=== PATIENT | female | born 1945 | race African-American/Black ===

== ENCOUNTER 2018-01-20 13:04 | Day surgery (SDC) | payer MEDICARE, OTHER ==
[2018-01-20 14:00] LABS: ADD MAN DIFF? NO
[2018-01-20 14:03] LABS: BASOPHIL # 0.1 10^3/ul (0.0-0.1); BASOPHILS % 0.9 % (0.0-2.0); EOSINOPHILS # 0.1 10^3/ul (0.0-0.5); EOSINOPHILS % 1.6 % (0.0-7.0); HEMATOCRIT 35.8 % (37.0-47.0); HEMOGLOBIN 11.6 g/dl (12.0-16.0); LYMPHOCYTES # 1.9 10^3/ul (0.8-2.9); LYMPHOCYTES % 34.2 % (15.0-51.0); MEAN CORPUSCULAR HEMOGLOBIN 29.2 pg (29.0-33.0); MEAN CORPUSCULAR HGB CONC 32.4 g/dl (32.0-37.0); MEAN CORPUSCULAR VOLUME 90.2 fl (82.0-101.0); MEAN PLATELET VOLUME 10.5 fl (7.4-10.4); MONOCYTE # 0.5 10^3/ul (0.3-0.9); MONOCYTES % 9.6 % (0.0-11.0); NEUTROPHILS % 53.7 % (39.0-77.0); PLATELET COUNT 285 10^3/UL (140-415); RED BLOOD COUNT 3.97 10^6/ul (4.20-5.40); RED CELL DISTRIBUTION WIDTH 14.2 % (11.5-14.5)
[2018-01-20 14:03] LABS: WHITE BLOOD COUNT 5.5 10^3/ul (4.8-10.8)
[2018-01-20 14:05] LABS: ADD UMIC YES; UR ASCORBIC ACID NEGATIVE (NEGATIVE); UR BACTERIA FEW /HPF (NONE SEEN); UR BILIRUBIN (Dip) NEGATIVE (NEGATIVE); UR BLOOD (Dip) NEGATIVE (NEGATIVE); UR CLARITY CLEAR (CLEAR); UR COLOR YELLOW (YELLOW); UR GLUCOSE (Dip) NEGATIVE (NEGATIVE); UR KETONES (Dip) NEGATIVE (NEGATIVE); UR LEUKOCYTE ESTERASE (Dip) TRACE Leu/ul (NEGATIVE); UR NITRITE (Dip) NEGATIVE (NEGATIVE); UR RBC 1 /HPF (0-5); UR SPECIFIC GRAVITY (Dip) 1.011 (1.003-1.030); UR SQUAMOUS EPITHELIAL CELL FEW /HPF (FEW); UR TOTAL PROTEIN (Dip) NEGATIVE (NEGATIVE); UR UROBILINOGEN (Dip) NEGATIVE (NEGATIVE); UR WBC 3 /HPF (0-5)
[2018-01-20 14:23] LABS: ANION GAP 18 (8-16); CARBON DIOXIDE 22 mmol/L (21-31); CHLORIDE 113 mmol/L (97-110); GLUCOSE 83 mg/dl (70-220)
[2018-01-20 14:24] LABS: INR 0.94; PROTIME 12.7 Sec (11.9-14.9)
[2018-01-20 14:25] LABS: PARTIAL THROMBOPLASTIN TIME 33.6 Sec (25.0-35.0)
[2018-01-20 14:33] LABS: BLOOD UREA NITROGEN 29 mg/dl (7-20); CALCIUM 9.5 mg/dl (8.4-10.2); CREATININE 1.49 mg/dl (0.44-1.00); POTASSIUM 4.6 mmol/L (3.5-5.1); SODIUM 148 mmol/L (135-144)
[2018-01-20] MEDS ORDERED: CEFAZOLIN 2 GM/50 ML (PMX) 50 ML IVPB (15:00)
[2018-01-20] MEDS ORDERED: LIDOCAINE 1% (MDV) 20 ML INJ (15:51)
[2018-01-20] MEDS ORDERED: PROPOFOL 20 ML (15:51)
[2018-01-20] MEDS ORDERED: MIDAZOLAM 1 MG/ML 2 ML INJ (15:51)
[2018-01-20] MEDS ORDERED: PHENYLephrine (100 MCG/ML) 5ML SYG (16:01)
[2018-01-20] MEDS ORDERED: CEFAZOLIN 1 GM INJ (16:02)
[2018-01-20] MEDS ORDERED: EPHEDrine SULFATE 50 MG/5 ML SYG (16:09)
[2018-01-20] MEDS: BUPIVACAINE 0.5% (SDV) 30 ML INJ (16:18)
[2018-01-20] MEDS: LIDOCAINE 2% (MDV) 20 ML INJ (16:18)
[2018-01-20] MEDS: POLYMYXIN/BACITRACIN 1L IRRIG (16:18)
[2018-01-20] MEDS: HYDROmorphONE (0.2 MG/ML) 10ML SYG IV ×10 (17:17→18:07)
[2018-01-20] MEDS: ONDANSETRON 4 MG INJ IV (17:19)
[2018-01-20] MEDS ORDERED: hydrALAzine 20 MG INJ IV (17:30)
[2018-01-20] MEDS ORDERED: LABETALOL HCL 20MG INJ IV (17:30)
== END 2018-01-20 21:07 | disposition home or self-care (01) ==
LOC: SDS 13:04
DX: D16.31 Benign neoplasm of short bones of right lower limb (principal); I96 Gangrene, not elsewhere classified; I73.9 Peripheral vascular disease, unspecified; E11.9 Type 2 diabetes mellitus without complications; Z89.432 Acquired absence of left foot; Z89.431 Acquired absence of right foot; E78.5 Hyperlipidemia, unspecified; I25.10 Atherosclerotic heart disease of native coronary artery without angina pectoris; F17.200 Nicotine dependence, unspecified, uncomplicated; I77.9 Disorder of arteries and arterioles, unspecified; I25.2 Old myocardial infarction
CPT/HCPCS: 28119; 73630; 80048; 81001; 82962; 85025; 85610; 85730; 88304; 88311

== ENCOUNTER 2019-05-06 08:44 | Inpatient (IN) | payer MEDICARE, OTHER ==
[2019-05-06 09:59] LABS: ADD MAN DIFF? NO
[2019-05-06 10:26] LABS: INR 0.98; PROTIME 13.1 Sec (11.9-14.9)
[2019-05-06 10:27] LABS: PARTIAL THROMBOPLASTIN TIME 33.2 Sec (23.0-35.0)
[2019-05-06 10:29] LABS: ALANINE AMINOTRANSFERASE 16 IU/L (13-69); ALBUMIN/GLOBULIN RATIO 1.14; ALKALINE PHOSPHATASE 154 IU/L (42-121); ANION GAP 5 (5-13); ASPARTATE AMINO TRANSFERASE 23 IU/L (15-46); BILIRUBIN,INDIRECT 0.4 mg/dl (0-1.1); BILIRUBIN,TOTAL 0.4 mg/dl (0.2-1.3); CALCIUM 9.4 mg/dl (8.4-10.2); CARBON DIOXIDE 25 mmol/L (21-31); CHLORIDE 113 mmol/L (97-110); GLUCOSE 113 mg/dl (70-220); TOTAL PROTEIN 7.5 g/dl (6.1-8.1)
[2019-05-06 10:33] LABS: BLOOD UREA NITROGEN 21 mg/dl (7-20); CREATININE 1.39 mg/dl (0.44-1.00); POTASSIUM 4.5 mmol/L (3.5-5.1); SODIUM 143 mmol/L (135-144)
[2019-05-06 10:48] LABS: WHITE BLOOD COUNT 6.2 10^3/ul (4.8-10.8)
[2019-05-06 10:48] LABS: BASOPHIL # 0.1 10^3/ul (0.0-0.1); BASOPHILS % 0.8 % (0.0-2.0); EOSINOPHILS # 0.1 10^3/ul (0.0-0.5); EOSINOPHILS % 1.5 % (0.0-7.0); HEMATOCRIT 29.5 % (37.0-47.0); HEMOGLOBIN 9.3 g/dl (12.0-16.0); LYMPHOCYTES # 1.5 10^3/ul (0.8-2.9); LYMPHOCYTES % 24.4 % (15.0-51.0); MEAN CORPUSCULAR HEMOGLOBIN 27.2 pg (29.0-33.0); MEAN CORPUSCULAR HGB CONC 31.5 g/dl (32.0-37.0); MEAN CORPUSCULAR VOLUME 86.3 fl (82.0-101.0); MEAN PLATELET VOLUME 10.4 fl (7.4-10.4); MONOCYTE # 0.6 10^3/ul (0.3-0.9); MONOCYTES % 10.1 % (0.0-11.0); NEUTROPHIL # 3.9 10^3/ul (1.6-7.5); NEUTROPHILS % 62.7 % (39.0-77.0); PLATELET COUNT 254 10^3/UL (140-415); RED BLOOD COUNT 3.42 10^6/ul (4.20-5.40); RED CELL DISTRIBUTION WIDTH 15.5 % (11.5-14.5)
[2019-05-06 10:49] LABS: HOLD TRANSMISSIONS 1
[2019-05-06] MEDS ORDERED: SOD CHLORIDE 0.9% 1,000 ML IV (11:00)
[2019-05-06] MEDS ORDERED: PROPOFOL 20 ML (11:10)
[2019-05-06] MEDS ORDERED: ROCURONIUM 50 MG INJ ×2 (11:10→11:11)
[2019-05-06] MEDS ORDERED: LIDOCAINE 2% (SDV) 5 ML INJ (11:10)
[2019-05-06] MEDS: GELATIN SIZE 100 SPONGE (12:13)
[2019-05-06] MEDS: HEPARIN 1000 UNITS/ML 10 ML INJ (12:14)
[2019-05-06] MEDS: THROMBIN 5000 UNIT VIAL (12:14)
[2019-05-06] MEDS ORDERED: ONDANSETRON 4 MG INJ (12:18)
[2019-05-06] MEDS ORDERED: DEXAMETHASONE 4 MG/ML 5 ML INJ (12:18)
[2019-05-06] MEDS ORDERED: HEPARIN 1000 UNITS/ML 10 ML INJ (12:31)
[2019-05-06] MEDS ORDERED: PROTAMINE 250 MG INJ (13:11)
[2019-05-06] MEDS ORDERED: SUGAMMADEX SODIUM 200 MG/2 ML VIAL IV (13:19)
[2019-05-06] MEDS ORDERED: ALBUTEROL 0.083% (NEB) 2.5 MG/3 ML AMP HHN (14:00)
[2019-05-06] MEDS ORDERED: ONDANSETRON 4 MG INJ IV ×2 (14:00→15:30)
[2019-05-06] MEDS ORDERED: MIDAZOLAM 1 MG/ML 2 ML INJ IV (14:00)
[2019-05-06] MEDS ORDERED: HYDROmorphONE 0.5 MG/0.5 ML SYG IV ×2 (14:00)
[2019-05-06] MEDS ORDERED: LABETALOL HCL 20MG INJ IV (14:00)
[2019-05-06] MEDS ORDERED: DIPHENHYDRAMINE 50 MG INJ IV (14:00)
[2019-05-06] MEDS ORDERED: niCARdipine 50 MG in SOD CHLORIDE 0.9% 480 ML IV (14:00)
[2019-05-06] MEDS ORDERED: EPHEDrine 25 MG/5 ML SYG IV (14:00)
[2019-05-06] MEDS ORDERED: MEPERIDINE 25 MG INJ IV (14:00)
[2019-05-06] MEDS: hydrALAzine 20 MG INJ IV ×2 (14:05→14:31)
[2019-05-06] MEDS: SOD CHLORIDE 0.9% 1,000 ML IV ×2 (14:30→21:47)
[2019-05-06] MEDS ORDERED: HYDROCODONE/APAP (5/325) TAB PO (15:30)
[2019-05-06] MEDS ORDERED: NACL 0.9% 3 ML SYG IV (15:30)
[2019-05-06] MEDS ORDERED: DEXTROSE 50% 50 ML SYRINGE IV ×2 (15:30)
[2019-05-06] MEDS ORDERED: ACETAMINOPHEN 325 MG TAB PO (15:30)
[2019-05-06] MEDS ORDERED: GLUCOSE GEL 15 GRAM TUBE BUCCAL (15:30)
[2019-05-06] MEDS: HYDROmorphONE 0.5 MG/0.5 ML SYG IV (15:30)
[2019-05-06] MEDS ORDERED: GLUCOSE GEL 15 GRAM TUBE PO ×2 (15:30)
[2019-05-06] MEDS ORDERED: GLUCAGON 1 MG INJ IM (15:30)
[2019-05-06 16:47] LABS: HEMOGLOBIN A1C 5.2 % (0-5.9)
[2019-05-06] MEDS: INSULIN ASPART [NOVOLOG] 3 ML PEN SC (20:29)
[2019-05-06] MEDS: HEPARIN 5,000 UNIT/1 ML VIAL SC (20:35)
[2019-05-06] MEDS: HYDROCODONE/APAP (5/325) TAB PO (20:44)
[2019-05-06] MEDS ORDERED: APIXABAN 5 MG TABLET PO (21:00)
[2019-05-06] MEDS: ALPRAZOLAM 1 MG TAB PO (21:55)
[2019-05-06 22:37] LABS: ADD UMIC NO; UR ASCORBIC ACID NEGATIVE (NEGATIVE); UR BILIRUBIN (Dip) NEGATIVE (NEGATIVE); UR BLOOD (Dip) NEGATIVE (NEGATIVE); UR CLARITY CLEAR (CLEAR); UR COLOR YELLOW (YELLOW); UR GLUCOSE (Dip) NEGATIVE (NEGATIVE); UR KETONES (Dip) TRACE mg/dL (NEGATIVE); UR LEUKOCYTE ESTERASE (Dip) NEGATIVE Leu/ul (NEGATIVE); UR NITRITE (Dip) NEGATIVE (NEGATIVE); UR SPECIFIC GRAVITY (Dip) 1.013 (1.003-1.030); UR TOTAL PROTEIN (Dip) NEGATIVE (NEGATIVE); UR UROBILINOGEN (Dip) NEGATIVE (NEGATIVE)
[2019-05-06 22:48] LABS: CREATININE,URINE RANDOM 67.26 mg/dl (20-320); PROTEIN/CREAT RATIO 0.28 RATIO
[2019-05-07] MEDS: ACCU-CHEK XX (02:00)
[2019-05-07] MEDS: HYDROCODONE/APAP (5/325) TAB PO ×3 (02:59→22:05)
[2019-05-07] MEDS: morphine 2 MG INJ IV (03:51)
[2019-05-07 05:52] LABS: ADD MAN DIFF? NO
[2019-05-07 06:01] LABS: WHITE BLOOD COUNT 10.1 10^3/ul (4.8-10.8)
[2019-05-07 06:01] LABS: BASOPHILS % 0.3 % (0.0-2.0); HEMATOCRIT 24.5 % (37.0-47.0); HEMOGLOBIN 7.6 g/dl (12.0-16.0); LYMPHOCYTES # 1.2 10^3/ul (0.8-2.9); LYMPHOCYTES % 12.2 % (15.0-51.0); MEAN CORPUSCULAR HEMOGLOBIN 26.9 pg (29.0-33.0); MEAN CORPUSCULAR VOLUME 86.6 fl (82.0-101.0); MEAN PLATELET VOLUME 11.5 fl (7.4-10.4); MONOCYTE # 0.7 10^3/ul (0.3-0.9); MONOCYTES % 6.9 % (0.0-11.0); NEUTROPHIL # 8.1 10^3/ul (1.6-7.5); NEUTROPHILS % 80.2 % (39.0-77.0); PLATELET COUNT 252 10^3/UL (140-415); RED BLOOD COUNT 2.83 10^6/ul (4.20-5.40); RED CELL DISTRIBUTION WIDTH 15.7 % (11.5-14.5)
[2019-05-07] MEDS: LEVOTHYROXINE 112 MCG TAB PO (06:03)
[2019-05-07 06:24] LABS: IRON 30 ug/dl (35-150)
[2019-05-07 06:33] LABS: % IRON SATURATION 15 % SAT (22-52); TOTAL IRON BINDING CAPACITY 206 ug/dl (241-421)
[2019-05-07 06:41] LABS: HEMOGLOBIN A1C 5.4 % (0-5.9)
[2019-05-07 06:43] LABS: ALANINE AMINOTRANSFERASE 13 IU/L (13-69); ALBUMIN 3.2 g/dl (3.3-4.9); ALBUMIN/GLOBULIN RATIO 1.03; ALKALINE PHOSPHATASE 105 IU/L (42-121); ANION GAP 6 (5-13); ASPARTATE AMINO TRANSFERASE 20 IU/L (15-46); BILIRUBIN,INDIRECT 0.3 mg/dl (0-1.1); BILIRUBIN,TOTAL 0.3 mg/dl (0.2-1.3); BLOOD UREA NITROGEN 24 mg/dl (7-20); CALCIUM 8.8 mg/dl (8.4-10.2); CARBON DIOXIDE 23 mmol/L (21-31); CHLORIDE 112 mmol/L (97-110); CHOLESTEROL 186 mg/dl (100-200); CREATININE 1.41 mg/dl (0.44-1.00); GLUCOSE 130 mg/dl (70-220); HDL CHOLESTEROL 62 mg/dl (33-92); LDL CHOLESTEROL,CALCULATED 98 mg/dl; MAGNESIUM 1.8 mg/dl (1.7-2.5); PHOSPHORUS 3.7 mg/dl (2.5-4.9); SODIUM 141 mmol/L (135-144); TOTAL PROTEIN 6.3 g/dl (6.1-8.1); TRIGLYCERIDES 128 mg/dl (0-149)
[2019-05-07 06:49] LABS: FREE THYROXINE INDEX (Calc) 2.49 ug/ml (0.65-3.89); T3 UPTAKE 37.7 % (23.5-40.5); T4 (THYROXINE) 6.6 ug/dl (5.5-11.0)
[2019-05-07 07:00] LABS: FERRITIN 40.1 ng/ml (11.1-264.0)
[2019-05-07 07:03] LABS: THYROID STIMULATING HORMONE 0.881 MIU/L (0.465-4.680)
[2019-05-07] MEDS: ASPIRIN (EC) 81 MG TAB PO (08:41)
[2019-05-07] MEDS: EZETIMIBE 10 MG TAB PO (08:41)
[2019-05-07] MEDS: CLOPIDOGREL 75 MG TAB PO (08:44)
[2019-05-07] MEDS: AMLODIPINE 10 MG TAB PO (08:46)
[2019-05-07] MEDS: HEPARIN 5,000 UNIT/1 ML VIAL SC ×2 (08:49→20:57)
[2019-05-07] MEDS: INSULIN ASPART [NOVOLOG] 3 ML PEN SC ×4 (09:03→21:00)
[2019-05-07] MEDS: SOD CHLORIDE 0.9% 1,000 ML IV ×2 (09:08→21:07)
[2019-05-07] MEDS: SOD FERRIC GLUC COMPLX 125 MG in SOD CHLORIDE 0.9% 100 ML IVPB (12:01)
[2019-05-07] MEDS: NEOMYC/POLYMYX/BACIT 30 GM OINT TOP (14:19)
[2019-05-07 14:54] LABS: HEMATOCRIT 25.6 % (37.0-47.0); HEMOGLOBIN 8.1 g/dl (12.0-16.0)
[2019-05-07] MEDS: ALPRAZOLAM 1 MG TAB PO ×2 (15:36→22:05)
[2019-05-07] MEDS ORDERED: ALPRAZOLAM 1 MG TAB PO (18:30)
[2019-05-07] MEDS ORDERED: INSULIN REGULAR, HUMAN 100 UNIT/1 ML 3ML VIAL SC (21:00)
[2019-05-08] MEDS: ACCU-CHEK XX (02:00)
[2019-05-08 05:31] LABS: ADD MAN DIFF? NO
[2019-05-08 05:33] LABS: BASOPHILS % 0.5 % (0.0-2.0); EOSINOPHILS # 0.1 10^3/ul (0.0-0.5); EOSINOPHILS % 0.6 % (0.0-7.0); HEMATOCRIT 23.9 % (37.0-47.0); HEMOGLOBIN 7.5 g/dl (12.0-16.0); LYMPHOCYTES # 2.5 10^3/ul (0.8-2.9); LYMPHOCYTES % 30.9 % (15.0-51.0); MEAN CORPUSCULAR HEMOGLOBIN 26.9 pg (29.0-33.0); MEAN CORPUSCULAR HGB CONC 31.4 g/dl (32.0-37.0); MEAN CORPUSCULAR VOLUME 85.7 fl (82.0-101.0); MONOCYTE # 0.7 10^3/ul (0.3-0.9); MONOCYTES % 8.6 % (0.0-11.0); NEUTROPHIL # 4.7 10^3/ul (1.6-7.5); PLATELET COUNT 238 10^3/UL (140-415); RED BLOOD COUNT 2.79 10^6/ul (4.20-5.40); RED CELL DISTRIBUTION WIDTH 15.9 % (11.5-14.5)
[2019-05-08 06:07] LABS: ALANINE AMINOTRANSFERASE 12 IU/L (13-69); ALKALINE PHOSPHATASE 97 IU/L (42-121); ANION GAP 5 (5-13); ASPARTATE AMINO TRANSFERASE 18 IU/L (15-46); BILIRUBIN,INDIRECT 0.4 mg/dl (0-1.1); BILIRUBIN,TOTAL 0.4 mg/dl (0.2-1.3); BLOOD UREA NITROGEN 29 mg/dl (7-20); CALCIUM 8.4 mg/dl (8.4-10.2); CARBON DIOXIDE 22 mmol/L (21-31); CHLORIDE 116 mmol/L (97-110); CREATININE 1.36 mg/dl (0.44-1.00); GLUCOSE 93 mg/dl (70-220); MAGNESIUM 1.9 mg/dl (1.7-2.5); PHOSPHORUS 3.2 mg/dl (2.5-4.9); POTASSIUM 4.7 mmol/L (3.5-5.1); SODIUM 143 mmol/L (135-144)
[2019-05-08] MEDS ORDERED: LEVOTHYROXINE 112 MCG TAB PO (07:00)
[2019-05-08] MEDS: SOD CHLORIDE 0.9% 1,000 ML IV (07:29)
[2019-05-08] MEDS: INSULIN ASPART [NOVOLOG] 3 ML PEN SC ×2 (07:35→11:30)
[2019-05-08] MEDS: ASPIRIN (EC) 81 MG TAB PO (08:26)
[2019-05-08] MEDS: ALPRAZOLAM 1 MG TAB PO (08:26)
[2019-05-08] MEDS: LEVOTHYROXINE 112 MCG TAB PO (08:27)
[2019-05-08] MEDS: EZETIMIBE 10 MG TAB PO (08:27)
[2019-05-08] MEDS: CLOPIDOGREL 75 MG TAB PO (08:27)
[2019-05-08] MEDS: AMLODIPINE 10 MG TAB PO (08:28)
[2019-05-08] MEDS: NEOMYC/POLYMYX/BACIT 30 GM OINT TOP (08:37)
[2019-05-08] MEDS: HEPARIN 5,000 UNIT/1 ML VIAL SC (08:38)
[2019-05-08] MEDS ORDERED: CLOPIDOGREL 75 MG TAB PO (09:00)
[2019-05-08] MEDS ORDERED: EZETIMIBE 10 MG TAB PO (09:00)
[2019-05-08] MEDS ORDERED: AMLODIPINE 10 MG TAB PO (09:00)
[2019-05-08] MEDS: EPOETIN ALFA-EPBX (NON-ESRD 10,000 UNIT/ML VIAL SC (09:50)
[2019-05-08 10:40] LABS: IMMEDIATE SPIN CROSSMATCH 1 2
[2019-05-08] MEDS: HYDROCODONE/APAP (5/325) TAB PO (10:57)
[2019-05-08] MEDS: SOD FERRIC GLUC COMPLX 125 MG in SOD CHLORIDE 0.9% 100 ML IVPB (13:00)
[2019-05-08 15:13] LABS: HEMATOCRIT 32.2 % (37.0-47.0); HEMOGLOBIN 10.1 g/dl (12.0-16.0)
== END 2019-05-08 17:40 | disposition home or self-care (01) | DRG 253 ==
LOC: REC 08:44 → ICU 14:04
PROVIDERS: Surgery Vascular Surgery
PROC: 04CK0ZZ Extirpation of Matter from Right Femoral Artery, Open Approach (ICD-10-PCS; principal; 2019-05-06 11:00)
PROC: 04UK0KZ Supplement Right Femoral Artery with Nonautologous Tissue Substitute, Open Approach (ICD-10-PCS; 2019-05-06 11:00)
PROC: 04PY0DZ Removal of Intraluminal Device from Lower Artery, Open Approach (ICD-10-PCS; 2019-05-06 11:00)
PROC: 30233N1 Transfusion of Nonautologous Red Blood Cells into Peripheral Vein, Percutaneous Approach (ICD-10-PCS; 2019-05-06 11:21)
DX: E11.51 Type 2 diabetes mellitus with diabetic peripheral angiopathy without gangrene (principal); T82.868A Thrombosis due to vascular prosthetic devices, implants and grafts, initial encounter; N17.9 Acute kidney failure, unspecified; L97.419 Non-pressure chronic ulcer of right heel and midfoot with unspecified severity; I70.234 Atherosclerosis of native arteries of right leg with ulceration of heel and midfoot; E78.5 Hyperlipidemia, unspecified; I25.10 Atherosclerotic heart disease of native coronary artery without angina pectoris; I10 Essential (primary) hypertension; F17.200 Nicotine dependence, unspecified, uncomplicated; E89.0 Postprocedural hypothyroidism; Z95.1 Presence of aortocoronary bypass graft; I25.2 Old myocardial infarction; D64.9 Anemia, unspecified
CPT/HCPCS: 36430; 71045; 80053; 80061; 81003; 82570; 82607; 82728; 82962; 83036; 83540; 83735; 84100; 84436; 84443; 84479; 85014; 85018; 85025; 85610; 85730; 86850; 86900; 86901; 86920; 87081; 88304; 88311; 93005; 97161